=== PATIENT | male | born 1995 | race African-American/Black ===

== ENCOUNTER 2021-12-23 03:01 | Emergency (ER) | payer MEDICAID ==
[~2021-12-23] VITALS: Ht 180.3 cm; Wt 87.1 kg
[2021-12-23] MEDS ORDERED: TRANEXAMIC ACID 1,000 MG/10 ML TP ONE (04:15)
[2021-12-23] MEDS ORDERED: HYDROCODONE/ACETAMINOPHEN 10/325MG TABLET PO ONE (04:30)
[2021-12-23 04:35] VITALS: BP 122/90
== END 2021-12-23 04:54 | disposition home or self-care (01) ==
LOC: ER 03:01
DX: S31.21XA Laceration without foreign body of penis, initial encounter (principal); X58.XXXA Exposure to other specified factors, initial encounter; Y93.89 Activity, other specified; Y92.013 Bedroom of single-family (private) house as the place of occurrence of the external cause
CPT/HCPCS: 99283